=== PATIENT | female | born 1940 | race Caucasian/White ===

== ENCOUNTER → 2017-01-24 | Outpatient (CLI) | payer OTHER ==
[~2017-01-24] MED LIST: ALPH300C PO; ALUMCHW2 PO; ASPEC325 PO; CALC600T9 PO; CLB200 PO; CLIN1LOT5 TOP; HYDR-5688 PO; LEVO100T7 PO; LORA10TA5 PO; LOSA25TA18 PO; MRPSR15 PO; MULT-884 PO; ROSU20TA PO; SNK PO; ZNTT/150 PO; [UNRECOGNIZED DRUG - CODE] PO
--- NOTE | 2017-01-24 09:33 | DIAGNOSTIC IMAGING REPORT ---
SMALL BOWEL STUDY CLINICAL HISTORY: BELCHING, nausea COMPARISON STUDY: None FLUOROSCOPY TIME: 48 seconds. 14 images were acquired.. FINDINGS: The patient was administered Enterovue and a small bowel study was performed. Contrast reached the colon at 1 hour. No abnormally dilated loops of jejunum or ileum are visualized. There is no abnormal loop separation. The mucosal pattern appeared normal. The small bowel to the right of midline. The findings are indicative of a malrotation. No abnormalities the terminal ileum are visualized. IMPRESSION: 1. Small bowel malrotation 2. No evidence of obstruction 3. No abnormalities of the terminal ileum are visualized Electronically signed by: Jer Baptiste M.D. 01/24/2017 9:32 AM Dictated Date/Time: 01/24/2017 9:28 AM
== END | disposition home or self-care (01) ==
LOC: C.RAD 07:48
PROVIDERS: ATTEND Nurse Practitioner Family
DX: R14.2 Eructation (principal); Q43.3 Congenital malformations of intestinal fixation